=== PATIENT | female | born 1970 | race Caucasian/White ===

== ENCOUNTER 2016-05-11 17:12 | Emergency (ER) | payer OTHER ==
[~2016-05-11] VITALS: Ht 154.9 cm; Wt 52.6 kg
[~2016-05-11 17:12] MED LIST: ADVAIR 250/501 EA INH; ADVICOR PO; ALBUTEROL0.09 MG/A2 IH; BACTRIM DS 8001 TA1 PO; CARAFATE1 G1 PO; CEPHALEXIN500 M1 PO; CIPRO500 MG PO; DULERA100 INH; FLAGYL500 MG PO; HYDROCODONE BIT1 T11 PO; K-TAB20 MEQ PO; KADIAN60 MG PO; LOMOTIL 0.025 M1 TA1 PO; MIRALAX17 GM PO; MSIR15 MG PO; NATURE'S BLEND F1 MG PO; NEURONTIN300 MG PO; NOVAPLUS V0.09 MG/Ac IH; PERCOCET 325 MG1 TA2 PO; PERCOCET 325 MG1 TA5 PO; PRILOSEC20 M1 PO; ROBAXIN500 MG PO; SENNA8.6 MG PO; ZOFRAN ODT4 MG SL
[2016-05-11 17:49] VITALS: BP 125/80
[2016-05-11] MEDS ORDERED: DOXYCYCLINE100 M3 PO (20:22)
[2016-05-11] MEDS ORDERED: PREDNISONE50 MG PO (20:22)
[2016-05-11] MEDS ORDERED: CYCLOBENZAPRINE10 MG PO (20:24)
== END 2016-05-11 20:36 | disposition home or self-care (01) ==
LOC: ED 17:12
DX: S70.02XA Contusion of left hip, initial encounter (principal); S14.109A Unspecified injury at unspecified level of cervical spinal cord, initial encounter; J32.9 Chronic sinusitis, unspecified; F17.200 Nicotine dependence, unspecified, uncomplicated; Z88.0 Allergy status to penicillin; W19.XXXA Unspecified fall, initial encounter; Y93.89 Activity, other specified; Y92.9 Unspecified place or not applicable; Y99.9 Unspecified external cause status

== ENCOUNTER 2019-12-06 19:59 | Emergency (ER) | payer OTHER ==
[~2019-12-06] VITALS: Ht 157.4 cm; Wt 52.2 kg
[~2019-12-06 19:59] MED LIST changes: +CYCLOBENZAPRINE10 MG PO; +DOXYCYCLINE100 M3 PO; +PREDNISONE50 MG PO
[2019-12-06 20:03] VITALS: BP 125/90
[2019-12-06] MEDS ORDERED: Bactroban Oint22 GM T (20:40)
[2019-12-06] MEDS ORDERED: KENALOG 0.1% OI15 GM T (20:40)
== END 2019-12-06 20:46 | disposition home or self-care (01) ==
LOC: ED 19:59
DX: L03.115 Cellulitis of right lower limb (principal); L23.9 Allergic contact dermatitis, unspecified cause; F17.200 Nicotine dependence, unspecified, uncomplicated; Z88.0 Allergy status to penicillin; Z79.899 Other long term (current) drug therapy

== ENCOUNTER 2020-04-29 18:16 | Emergency (ER) | payer OTHER ==
[~2020-04-29] VITALS: Ht 154.9 cm; Wt 52.2 kg
[~2020-04-29 18:16] MED LIST changes: +Bactroban Oint22 GM T; +KENALOG 0.1% OI15 GM T
[2020-04-29 18:23] VITALS: BP 138/83
[2020-04-29 19:42] LABS: BASO % 0.4 % (0.0-1.0); EOS % 0.4 % (1.0-4.0); HEMATOCRIT 41.2 % (37.0-47.0); LYMPH # 1.3 10*3/uL (1.3-4.4); LYMPH % 25.3 % (27.0-41.0); MEAN CELL VOLUME 97.9 fl (81.0-99.0); MEAN CORPUSCULAR HGB 32.3 pg (27.0-31.0); MEAN PLATELET VOLUME 8.4 fl (9.6-12.3); MONO # 0.2 10*3/uL (0.1-1.0); MONO % 4.6 % (3.0-9.0); NEUT # 3.5 10*3/uL (2.3-7.9); NEUT % 69.1 % (47.0-73.0); PLATELET COUNT AUTOMATED 267 10*3/uL (130-400); RED BLOOD COUNT 4.21 10*6/uL (4.10-5.10); RED CELL DISTRI WIDTH 11.9 % (0-14.5)
[2020-04-29 19:58] LABS: ALKALINE PHOSPHATASE 69 U/L (45-117); BUN 6 mg/dl (7-24); CHLORIDE 104 mmol/L (98-107); CREATININE 0.63 mg/dL (0.55-1.02); POTASSIUM 3.5 mmol/L (3.5-5.1); SGOT/AST 25 IU/L (3-35); SGPT/ALT 35 U/L (12-78); SODIUM 139 mmol/L (136-145); TOTAL PROTEIN 8.4 gm/dL (6.4-8.2)
== END 2020-04-29 20:30 | disposition home or self-care (01) ==
LOC: ED 18:16
PROVIDERS: Nurse Practitioner
DX: S81.801A Unspecified open wound, right lower leg, initial encounter (principal); X58.XXXA Exposure to other specified factors, initial encounter; Y93.89 Activity, other specified; Y92.89 Other specified places as the place of occurrence of the external cause; Y99.8 Other external cause status

== ENCOUNTER → 2020-05-01 | Outpatient (CLI) | payer OTHER | END | disposition home or self-care (01) | LOC: WOUNDCARE 01:57 | PROVIDERS: ATTEND Nurse Practitioner | DX: S81.801A Unspecified open wound, right lower leg, initial encounter (principal); L97.218 Non-pressure chronic ulcer of right calf with other specified severity; I73.9 Peripheral vascular disease, unspecified; R21 Rash and other nonspecific skin eruption; X58.XXXA Exposure to other specified factors, initial encounter; Y93.89 Activity, other specified; Y92.89 Other specified places as the place of occurrence of the external cause; Y99.8 Other external cause status ==

== ENCOUNTER → 2020-05-08 | Outpatient (CLI) | payer OTHER | END | disposition home or self-care (01) | LOC: WOUNDCARE 01:21 | PROVIDERS: ATTEND Nurse Practitioner | DX: L97.811 Non-pressure chronic ulcer of other part of right lower leg limited to breakdown of skin (principal); L97.211 Non-pressure chronic ulcer of right calf limited to breakdown of skin; I73.9 Peripheral vascular disease, unspecified; R21 Rash and other nonspecific skin eruption; F17.210 Nicotine dependence, cigarettes, uncomplicated ==

== ENCOUNTER → 2020-05-13 | Outpatient (CLI) | payer OTHER | END | disposition home or self-care (01) | LOC: US 00:45 | PROVIDERS: ATTEND Nurse Practitioner | DX: I73.9 Peripheral vascular disease, unspecified (principal); L97.218 Non-pressure chronic ulcer of right calf with other specified severity ==

== ENCOUNTER 2020-05-23 18:22 | Emergency (ER) | payer OTHER ==
[~2020-05-23] VITALS: Ht 154.9 cm; Wt 51.3 kg
[2020-05-23 18:29] VITALS: BP 162/90
== END 2020-05-23 19:49 | disposition home or self-care (01) ==
LOC: ED 18:22
DX: S46.911A Strain of unspecified muscle, fascia and tendon at shoulder and upper arm level, right arm, initial encounter (principal); R07.81 Pleurodynia; R20.2 Paresthesia of skin; F32.9 Major depressive disorder, single episode, unspecified; F41.9 Anxiety disorder, unspecified; J45.909 Unspecified asthma, uncomplicated; F17.200 Nicotine dependence, unspecified, uncomplicated; Z88.0 Allergy status to penicillin; Z79.899 Other long term (current) drug therapy; Z98.890 Other specified postprocedural states; W20.8XXA Other cause of strike by thrown, projected or falling object, initial encounter; Y93.01 Activity, walking, marching and hiking; Y92.098 Other place in other non-institutional residence as the place of occurrence of the external cause; Y99.8 Other external cause status

== ENCOUNTER 2020-05-24 02:10 | Emergency (ER) | payer OTHER ==
[~2020-05-24] VITALS: Ht 154.9 cm; Wt 51.3 kg
[2020-05-24 02:21] VITALS: BP 156/93
== END 2020-05-24 03:04 | disposition home or self-care (01) ==
LOC: ED 02:10
DX: S45 Injury of blood vessels at shoulder and upper arm level (principal); L85.3 Xerosis cutis; F41.9 Anxiety disorder, unspecified; J44.9 Chronic obstructive pulmonary disease, unspecified; F31.9 Bipolar disorder, unspecified; K21.9 Gastro-esophageal reflux disease without esophagitis; F17.200 Nicotine dependence, unspecified, uncomplicated; Z88.0 Allergy status to penicillin; Z79.899 Other long term (current) drug therapy; Z98.51 Tubal ligation status; X58.XXXD Exposure to other specified factors, subsequent encounter

== ENCOUNTER → 2020-05-26 | Outpatient (CLI) | payer OTHER | LOC: WOUNDCARE | PROVIDERS: ATTEND Nurse Practitioner | DX: L97.812 Non-pressure chronic ulcer of other part of right lower leg with fat layer exposed (principal); L97.218 Non-pressure chronic ulcer of right calf with other specified severity; I73.9 Peripheral vascular disease, unspecified; R21 Rash and other nonspecific skin eruption; F17.210 Nicotine dependence, cigarettes, uncomplicated ==

== ENCOUNTER 2020-05-31 10:39 | Emergency (ER) | payer OTHER ==
[~2020-05-31] VITALS: Wt 49.9 kg
[2020-05-31 10:53] VITALS: BP 143/69
== END 2020-05-31 12:27 | disposition home or self-care (01) ==
LOC: ED 10:39
DX: S59.901A Unspecified injury of right elbow, initial encounter (principal); J44.9 Chronic obstructive pulmonary disease, unspecified; K21.9 Gastro-esophageal reflux disease without esophagitis; F41.9 Anxiety disorder, unspecified; F32.9 Major depressive disorder, single episode, unspecified; F17.200 Nicotine dependence, unspecified, uncomplicated; Z98.890 Other specified postprocedural states; Z88.0 Allergy status to penicillin; Z79.899 Other long term (current) drug therapy; Z98.51 Tubal ligation status; X58.XXXA Exposure to other specified factors, initial encounter; Y93.89 Activity, other specified; Y92.89 Other specified places as the place of occurrence of the external cause; Y99.8 Other external cause status

== ENCOUNTER → 2020-06-02 | Outpatient (CLI) | payer OTHER | LOC: WOUNDCARE 01:14 | PROVIDERS: ATTEND Nurse Practitioner | DX: L97.812 Non-pressure chronic ulcer of other part of right lower leg with fat layer exposed (principal); L97.218 Non-pressure chronic ulcer of right calf with other specified severity; I73.9 Peripheral vascular disease, unspecified; R21 Rash and other nonspecific skin eruption; F17.210 Nicotine dependence, cigarettes, uncomplicated ==